=== PATIENT | female | born 1955 | race Caucasian/White ===

== ENCOUNTER 2025-02-05 08:21 | Emergency (ER) | payer OTHER ==
[~2025-02-05] VITALS: Wt 51.3 kg
[~2025-02-05 08:21] MED LIST: ALPRAZOLAM0.5 M3 PO; DARVOCET N 1001 TAB PO; DAYPRO600 M1 PO; IBU800 M1 PO; LEVOTHYROXINE0.15 M1 PO; MOTRIN800 MG PO; NAPROSYN500 MG PO; PAROXETINE HCL20 MG PO; ROBAXIN750 MG PO; SYNTHROID PO; ULTRAM50 MG PO; XANAX PO
[2025-02-05] MEDS ORDERED: GABAPENTIN100 M2 PO (08:30)
== END 2025-02-05 09:11 | disposition home or self-care (01) ==
LOC: ED 08:21
DX: S63.502A Unspecified sprain of left wrist, initial encounter (principal); S60.222A Contusion of left hand, initial encounter; W18.39XA Other fall on same level, initial encounter; Y93.89 Activity, other specified; Y92.69 Other specified industrial and construction area as the place of occurrence of the external cause; Y99.0 Civilian activity done for income or pay